=== PATIENT | male | born 1985 | race Caucasian/White ===

== ENCOUNTER 2025-03-23 13:11 | Outpatient (CLI) | payer BC, SELFPAY | END 2025-03-23 13:12 | disposition home or self-care (01) | LOC: NFLDREF 03-25 13:48 | PROVIDERS: PCP Nurse Practitioner Family; Referring Provider Nurse Practitioner Family; Visit Provider Nurse Practitioner Family | DX: Z13.1 Encounter for screening for diabetes mellitus (principal); Z13.6 Encounter for screening for cardiovascular disorders | CPT/HCPCS: 80061; 82947 ==

== ENCOUNTER 2025-08-30 07:03 | Outpatient (CLI) | payer BC, SELFPAY ==
--- NOTE | 2025-08-30 07:15 | CRLHL7_ITS ---
For Patients: As a result of the Century Cures Act, medical imaging exams and procedure reports are released immediately into your electronic medical record. You may view this report before your referring provider. If you have questions, please contact your health care provider. CLINICAL HISTORY: unspecified abdominal pain COMPARISON: none TECHNIQUE: Real time dyer scale imaging and color Doppler analysis was performed of the abdomen. FINDINGS: Sonographic imaging demonstrates normal size and uniform echotexture of the liver. The spleen is of normal size. The pancreas appears normal. The proximal abdominal aorta and IVC appear normal. There is no evidence of ascites. The gallbladder is of normal size and there is no evidence of sludge or stones within the gallbladder lumen. The gallbladder wall measures 1 mm in thickness. The common bile duct measures 3 mm in size within the angeles hepatis. The kidneys appear symmetric. The right kidney measures 9.6 cm in length and the left kidney measures 10.8 cm. There is no evidence of a renal calculus or hydronephrosis. IMPRESSION: Normal abdominal ultrasound. Dictated by Gonzalo Wolf MD @ 08/30/2025 7:48:46 AM (Electronically Signed)
== END 2025-08-30 07:04 | disposition home or self-care (01) ==
LOC: US 07:04
PROVIDERS: PCP Nurse Practitioner Family; Visit Provider Family Medicine
DX: R10.9 Unspecified abdominal pain (principal)
CPT/HCPCS: 76700